=== PATIENT | female | born 1960 | race Caucasian/White ===

== ENCOUNTER 2016-06-03 16:30 | Inpatient (IN) | payer OTHER ==
--- NOTE | 2016-06-03 17:05 | PROVIDER DOCUMENTATION ---
HPI-General Adult - General Source: patient - History of Present Illness -Gen Adult Nature of Presenting Problems: pt is a 56 yof who came to the ED with a cc of edema. Pt reports her edema is getting worse over the last couple of days. pt has a hx of venous stasis. Location of Pain/Injury: reports: lower extremity Pain Radiation: reports: no radiation Quality of Pain: reports: none Severity: reports: mild Onset/Duration: reports: unsure Timing: reports: still present Context/Activities at Onset: reports: none Modifying Factors: improves with: nothing Associated Symptoms: reports: denies symptoms Similar Symptoms Previously?: No Recently seen or treated by another doctor?: No <Steffanie Colón - Last Filed: 06/03/16 17:47> <Ervin Vargas - Last Filed: 06/03/16 17:52> <Kadeem Ramirez - Last Filed: 06/03/16 20:44> - General Chief Complaint: Edema Stated Complaint: EDEMA/LEGS,DIABETIC,SORES ON LEG Allergies/Adverse Reactions: Patient Allergies Allergy/AdvReac Type Severity Reaction Status Date / Time NSAIDS (Non-Steroidal AdvReac Unknown BLEEDING Verified 06/03/16 18:13 Anti-Inflamma Home Medications: Home Medication List Medication Instructions Recorded Confirmed Last Taken Type Levothyroxine [Synthroid] 50 microgm PO DAILY 12/09/11 06/03/16 06/03/16 09:00 History Lisinopril 40 mg PO DAILY 12/09/11 06/03/16 06/03/16 09:00 History Metoprolol [Lopressor] 50 mg PO BID 12/09/11 06/03/16 06/03/16 09:00 History Albuterol Sulfate Inhaler 2 puff INH Q6H PRN PRN 07/20/12 06/03/16 11/15/14 History [Ventolin Hfa] Isosorbide Mononitrate E.r. [Imdur] 60 mg PO DAILY 07/20/12 06/03/16 06/03/16 09 :00 History PRAVAstatin [Pravachol] 40 mg PO QHS 07/20/12 06/03/16 06/02/16 History Spironolactone [Aldactone] 25 mg PO DAILY 07/20/12 06/03/16 06/03/16 09:00 History Aspirin 81 mg PO DAILY 08/28/12 06/03/16 06/03/16 09:00 History Fluticasone/Salmet 250/50 INH 1 puff INH RTBID 08/28/12 06/03/16 06/18/15 History [Advair 250/50 Diskus] Ranolazine E.r. [Ranexa] 1,000 mg PO BID 08/28/12 06/03/16 06/03/16 09:00 History Gabapentin [Neurontin] 600 mg PO HS 09/09/12 06/03/16 06/02/16 History Fluticasone 50 Mcg Nasal [place] 1 spray ARIE DAILY PRN PRN 06/18/15 06/03/1606/03 09:00 History [Flonase] Furosemide 20 mg PO BID 06/18/15 06/03/16 06/03/16 09:00 History Glipizide E.r. [Glucotrol Xl] 5 mg PO HS 06/18/15 06/03/16 06/02/16 History Warfarin [Coumadin] 4 mg PO DIRECTED 06/18/15 06/03/16 06/02/16 History Omeprazole [Prilosec] 40 mg PO DAILY 06/03/16 06/03/16 06/03/16 09:00 History Polyethylene Glycol 3350 [Miralax] 17 gm PO DAILY PRN PRN 06/03/16 06/03/16 2 Days Ago History Warfarin [Coumadin] 2 mg PO DIRECTED 06/03/16 06/03/16 05/28/16 History Past History - Adult - PAST MEDICAL HISTORY-ADULT Review of Records: reports: Old Records Reviewed, Nursing Assessment Review Major Childhood Illnesses: reports: denies history Cardiovascular: reports: CAD, CHF, HTN, hyperlipidemia Respiratory: reports: COPD Gastrointestinal: reports: GERD Obstetrical/Gynecological: reports: denies history Genitourinary: reports: denies history Musculoskeletal: reports: denies history Neurological: reports: denies history Endocrine/Immune: reports: Diabetes Other Conditions: reports: denies history - PRIOR SURGERIES/PROCEDURES Surgical/Procedure History: reports: orthopedic (extremity), other (ulcer surgery) - IMMUNIZATION STATUS Childhood Immunizations: See Nurse Assessment Flu Vaccine: See Nurse Assessment - FAMILY HISTORY Family History: reviewed, not pertinent <Steffanie Colón - Last Filed: 06/03/16 17:47> Physical Exam-General - PHYSICAL EXAM-ADULT Initial Vital Signs Reviewed: Yes - CONSTITUTIONAL General Appearance: appears well, alert, no apparent distress - EYES Eyes: PERRL/EOMI, pink conjunctivae, fundi clear, no AV nicking - NECK Neck: non-tender - RESPIRATORY Respiratory: chest non-tender, lungs clear - CARDIOVASCULAR Cardiovascular: normal peripheral pulses, regular rate, rhythm - GASTROINTESTINAL (ABDOMEN) Abdominal Exam: normal bowel sounds, non tender, soft - LYMPHATIC Lymphatic: no adenopathy - MUSCULOSKELETAL Back Exam: normal inspection Extremity: pedal edema - SKIN Integumentary: normal color - NEUROLOGIC Neurologic: grossly normal - PSYCHIATRIC Psych/Mental Status: normal mood/affect, normal thought content, normal thought process, oriented x 3 <KatarzynaSteffanie - Last Filed: 06/03/16 17:47> Progress - PLAN OF CARE/RESULTS Progress/Plan/Lab Results: Vital Signs - 24 hr 06/03/16 16:39 Temperature 98.5 F Pulse Rate 76 Respiratory 22 Rate Blood Pressure 143/80 O2 Sat by Pulse 99 Oximetry - CHANGE OF SHIFT REPORT (ED Provider) Report Given and Care Transferred to:: Dr. Escobedo Time of Transfer: 17:48 Items Pending: Labs, XRAY Results <Steffanie Colón - Last Filed: 06/03/16 17:47> - CHANGE OF SHIFT REPORT (ED Provider) Report Given and Care Transferred to:: Dr. Jeny Escobedo Time of Transfer: 18:00 Items Pending: Labs, XRAY Results Tentative Impression of Patient: venous stasis (chronic) CHF exacerbation <Ervin Vargas - Last Filed: 06/03/16 17:52> - PLAN OF CARE/RESULTS Progress/Plan/Lab Results: Vital Signs - 24 hr 06/03/16 06/03/16 06/03/16 16:39 17:55 18:27 Temperature 98.5 F 97.8 F Pulse Rate 76 74 68 Respiratory 22 22 16 Rate Blood Pressure 143/80 154/69 143/95 O2 Sat by Pulse 99 97 96 Oximetry Orders Category Date Time Status Cardiac Monitoring DIRECTED Care 06/03/16 17:07 Active Saline Loc NOW Care 06/03/16 17:07 Active CHEST-2 VIEWS [RAD] Stat Exams 06/03/16 17:07 Draft CBC WITH ELECTRONIC DIFF [HEME] Stat Lab 06/03/16 17:50 Completed CK PROFILE [SP CHEM] Stat Lab 06/03/16 17:50 Completed COMPREHENSIVE METABOLIC PANEL [CHEM] Stat Lab 06/03/16 17:50 Completed MAGNESIUM [CHEM] Stat Lab 06/03/16 17:50 Completed PRO B-NATRIURETIC PEPTIDE Stat Lab 06/03/16 17:50 Completed PROTIME WITH INR [COAG] Stat Lab 06/03/16 17:50 Completed PTT [COAG] Stat Lab 06/03/16 17:50 Completed TROPONIN T Stat Lab 06/03/16 17:50 Completed EKG [EKG] Stat Ther 06/03/16 17:07 Ordered Laboratory Tests 06/03/16 06/03/16 06/03/16 17:50 17:50 17:50 WBC 7.65 RBC 4.10 L Hgb 12.9 Hct 39.3 MCV 95.9 MCH 31.5 H MCHC 32.8 L RDW Std Deviation 12.9 Plt Count 244 MPV 10.9 H Immature Gran % (Auto) 1.0 H Neut % (Auto) 72.3 Lymph % (Auto) 15.9 L [place] % (Auto) 8.1 Eos % (Auto) 2.4 Baso % (Auto) 0.3 Immature Gran # (Auto) 0.08 H Neut # (Auto) 5.53 Lymph # (Auto) 1.22 [place] # (Auto) 0.62 H Eos # (Auto) 0.18 Baso # (Auto) 0.02 PT INR PTT (Actin FS) Sodium 137 Potassium 4.1 Chloride 98 Carbon Dioxide 22 L Anion Gap 17 BUN 23 H Creatinine 1.2 H Estimated GFR/1.73 m2 46 BUN/Creatinine Ratio 19 Glucose 233 H Calculated Osmolality 285 Calcium 8.3 L Magnesium 1.7 Total Bilirubin 0.70 AST 31 H ALT 34 Alkaline Phosphatase 74 Creatine Kinase 122 Troponin T [id number] Pept 164 Total Protein 6.5 Albumin 3.6 Globulin 2.9 Albumin/Globulin Ratio 1.2 06/03/16 06/03/16 17:50 17:50 WBC RBC Hgb Hct MCV MCH MCHC RDW Std Deviation Plt Count MPV Immature Gran % (Auto) Neut % (Auto) Lymph % (Auto) [place] % (Auto) Eos % (Auto) Baso % (Auto) Immature Gran # (Auto) Neut # (Auto) Lymph # (Auto) [place] # (Auto) Eos # (Auto) Baso # (Auto) PT 30.4 H INR 2.84 PTT (Actin FS) 32.5 Sodium Potassium Chloride Carbon Dioxide Anion Gap BUN Creatinine Estimated GFR/1.73 m2 BUN/Creatinine Ratio Glucose Calculated Osmolality Calcium Magnesium Total Bilirubin AST ALT Alkaline Phosphatase Creatine Kinase Troponin T < 0.010 Nzb-T-Uazrqkxormp Pept Total Protein Albumin Globulin Albumin/Globulin Ratio - EKG 1 Time of EKG reading by physician:: 17:46 EKG Read and Signed by:: Darin Escobedo EKG Interpretation (*Must complete 3 of following elements*): Normal Rate: 74 Rhythm: NSR - XRAY 1 XRAY: Bilateral XRAY Study: Chest Impression: See EMR Report (Minimal pulmonary edema vs fibrosis; Stable cardiomegaly) XRAY Interpretation: See report - CONSULTS/PCP/HOSPITALIST Notification #1 *Consult/PCP/Hospitalist*: Dr. Campbell (Hospitalist) Time Discussed: 19:50 Consult Disposition: Admit - CHANGE OF SHIFT REPORT (ED Provider) Report Given and Care Transferred to:: Dr. Escobedo Time of Transfer: 18:00 <Kadeem Ramirez - Last Filed: 06/03/16 20:44> Departure <Steffanie Colón - Last Filed: 06/03/16 17:47> <Ervin Vargas - Last Filed: 06/03/16 17:52> - Departure Time of Disposition Order: 19:57 Certified Medical Emergency: Emergent <Kadeem Ramirez - Last Filed: 06/03/16 20:44> - Departure DIAGNOSIS: CHF (congestive heart failure) Qualifiers: Congestive heart failure type: unspecified congestive heart failure type Congestive heart failure chronicity: unspecified congestive heart failure chronicity Qualified Code(s): I50.9 - Heart failure, unspecified Disposition: ADMITTED INPATIENT 09 Condition: Stable Referrals: Dave Moreau MD [Primary Care Provider] - Attestation - Scribe Verification/Attestation Scribe:: Steffanie Colón Acting as Scribe for:: Ervin Vargas Scribe documention review:: This chart was documented by a scribe and accurately reflects the service the provider performed and the decisions made by the provider. - Scribe Verification/Attestation #2 Shift Change Time: 17:50 Scribe Name: Kadeem Ramirez Acting as Scribe for:: Darin Escobedo <Steffanie Colón - Last Filed: 06/03/16 17:47> - Scribe Verification/Attestation Scribe:: Kadeem Ramirez Acting as Scribe for:: Darin Escobedo Scribe documention review:: This chart was documented by a scribe and accurately reflects the service the provider performed and the decisions made by the provider. - Scribe Verification/Attestation #2 Shift Change Time: 18:00 Scribe Name: Kadeem Ramirez Acting as Scribe for:: Darin Escobedo <Kadeem Ramirez - Last Filed: 06/03/16 20:44> Physician Attestation
--- NOTE | 2016-06-03 18:15 | Diag Imaging Result Document ---
PROCEDURE NAME: CHEST-2 VIEWS - 06/03/2016 FRONTAL AND LATERAL CHEST, 2 VIEWS: COMPARISON: Compared to 06/18/2015. The lungs are well expanded. Mild cardiomegaly remains. Mild increased interstitial markings have an appearance fairly similar to that of the prior exam. No consolidation. No pleural effusions. IMPRESSION: 1. Minimal pulmonary edema versus fibrosis. 2. Stable cardiomegaly.
[2016-06-03 18:27] LABS: MANUAL DIFF NEEDED? NO
[2016-06-03 18:37] LABS: BASO% 0.3 % (0.0-0.8); EOS# 0.18 X1000 (0.0-0.7); EOS% 2.4 % (0.0-10.0); HEMATOCRIT 39.3 % (37.0-47.0); HEMOGLOBIN 12.9 g/dL (12.0-16.0); IMM GRAN# 0.08 X1000 (0.0-0.04); LYMPH# 1.22 X1000 (1.2-3.4); LYMPH% 15.9 % (20.5-51.1); MCH 31.5 PG (27-31); MCHC 32.8 g/dL (33-37); MCV 95.9 FL (81-99); MONO# 0.62 X1000 (0.11-0.59); MONO% 8.1 % (1.7-9.3); MPV 10.9 FL (7.4-10.4); NEUT% 72.3 % (42.2-75.2); PLT 244 X1000 (130-400)
[2016-06-03 18:49] LABS: PTT 32.5 Seconds (22.0-36.0)
[2016-06-03 18:53] LABS: ALBUMIN 3.6 g/dL (3.5-5.0); CALCIUM 8.3 mg/dL (8.8-10.2); MAGNESIUM 1.7 mg/dL (1.5-2.7); POTASSIUM 4.1 mmol/L (3.5-5.1); TOTAL BILIRUBIN 0.7 mg/dL (0.20-1.00); TOTAL PROTEIN 6.5 g/dL (6.3-8.3)
[2016-06-03 18:59] LABS: INR 2.84; PROTIME 30.4 Seconds (9.2-11.7)
[2016-06-03] MEDS ORDERED: LASIX IV ONE (21:07)
[2016-06-03] MEDS ORDERED: HYDROXYZINE IM ONE (22:03)
--- NOTE | 2016-06-03 23:00 | HISTORY AND PHYSICAL ---
REASON FOR ADMISSION: Shortness of breath for the last 10 days. One week history of leg swelling. Ms. Jamia Rojo is 56-year-old lady with past medical history of diastolic heart failure, type 2 diabetes, prior PE, COPD, asthma, sleep apnea noncompliant with CPAP, aortic aneurysm, reflux disease, coronary artery disease, hypertension, diabetic neuropathy, kidney stones, hypothyroidism and chronic venous insufficiency. She comes in today complaining of a 10-day history of progressive acute on chronic worsening shortness of breath. Has a longstanding history of chronic dyspnea on exertion and is able to walk about 25 yards before she becomes short of breath. However over the last 1 week she says that her breath sounds diminished to the point that she can barely go 5 feet before she becomes profoundly short of breath. She admits to having occasional cough which is dry but no fever or chills. She reports simultaneous lower extremity leg swelling which has not been very significant but more than usual. Says along with this last 4 days she is having pruritus of her lower extremities and some slight redness. Said the swelling does recede when she wakes up in the morning but is worse at the end of the day. Denies any calf pain or pain in the popliteal area or on the medial aspect of her thighs. No lower extremity discoloration. She has longstanding history of chronic orthopnea and sleeps in recliner although she says it has slightly gotten worse. No PND, no chest pain. She admits of having slight abdominal swelling and distention over the last few days. REVIEW OF SYSTEMS: Only notable for urge incontinence. Otherwise 12 system review is negative. Positive findings per HPI. ALLERGIES: NSAIDs. HOME MEDICATIONS: She takes lisinopril 40 mg daily, Lopressor 50 mg b.i.d., Synthroid 50 mcg daily, Ventolin inhaler 2 puffs q.6, Aldactone 25 mg daily, Imdur 60 mg daily, Pravachol 40 mg at bedtime, Advair 1 puff b.i.d., aspirin 81 mg daily, Ranexa 1000 mg b.i.d., Neurontin 600 mg at bedtime, Flonase 1 puff daily, Coumadin 4 mg as directed and 2 mg as directed, furosemide 20 mg b.i.d., glipizide 5 mg at bedtime, MiraLAX 17 mg daily, omeprazole 40 mg daily. SURGICAL HISTORY: She has had bilateral lower extremity surgery for bone spurs, right breast hematoma removed and GI surgery post GI bleed. SOCIAL HISTORY: Lives alone. She is disabled, does not smoke, drink or illicit drugs. FAMILY HISTORY: Notable for extensive heart disease in first-degree relatives, type 2 diabetes, thyroid problems. LAB WORK: X-ray shows mildly increased interstitial edema versus fibrosis. EKG not available for review when I request. White count 7000, hemoglobin and hematocrit 12 and 39, platelets 244,000. BUN 23, creatinine 1.2, glucose 233. Troponin is negative. ProBNP is 164, INR is 2.8. PHYSICAL EXAMINATION: GENERAL: Morbidly obese middle-aged woman who is in mild respiratory distress. She is A, O x3, normal mood and affect. VITAL SIGNS: Heart rate is 68, respiration 17, blood pressure is 141/57, 96% on room air. HEENT: Head is normocephalic, atraumatic. JEVON, EOMI, she is anicteric and not pale. No oropharyngeal exudates or erythema . No cyanosis. NECK: Short and thick. No JVD visualized, no bruit, no thyromegaly. CHEST: Decreased air entry in both lung da sil[place] with few scattered wheezes and questionable basilar crepitations. CARDIOVASCULAR: First, second heart sounds heard. No gallops. Possible soft 2/6 diastolic murmur. Rhythm is regular. ABDOMEN: Protuberant, soft, with no focal areas of tenderness. No masses, no organomegaly. Bowel sounds are hypoactive. RECTAL: Deferred at this time. EXTREMITIES: Patient has trace to 1+ pitting edema lower extremities. She has notable oozing of clear fluid from her legs. There is slight hyperkalemia bilaterally on both lower extremities on the anterior medial aspect of her leg. They are slightly warm to touch but they are not indurated. Pulses distally are diminished in her lower extremities but patient has good volume + 1 and her distal upper extremities. No clubbing, peripheral cyanosis. NEUROLOGICAL: No focal deficits. SKIN: See above. Otherwise unremarkable. MUSCULOSKELETAL: Exam is grossly normal. ASSESSMENT: At this time is. 1. Early onset acute diastolic heart failure. 2. Type 2 diabetes uncontrolled. 3. Chronic venous insufficiency. 4. Chronic obstructive pulmonary disease. 5. Sleep apnea. 6. Coronary artery disease. 7. Hypertensive heart disease. 8. Hypothyroidism. PLAN: At this time will admit patient for diuresis for the next 1-2 days. Follow up with labs and chest film to document objective improvement. Get echocardiogram to document ejection fraction. Last 1 was 70%. At this point in time will also start patient on nebulizer treatments for symptomatic relief. She is pretty much at optimal therapy for her heart disease although may benefit from increasing her Imdur and/or beta-chen if her heart rate tolerates. She may also benefit from increasing her diuretics at discharge. She will be continued on her oral agents i.e. Glucotrol for now and she will be on sliding scale in the interim and depending on her A1c maybe metformin added if she can tolerate. Continue with her anticoagulation which is therapeutic.
[2016-06-03] MEDS ORDERED: TYLENOL PO PRN (23:35)
[2016-06-03] MEDS ORDERED: ZOFRAN IV PRN (23:35)
[2016-06-03] MEDS ORDERED: COUMADIN PO SCH (23:35)
[2016-06-03] MEDS: DUONEB (A & A) INH SCH (23:52)
[2016-06-04] MEDS: GLUCOTROL XL PO SCH ×2 (01:00→20:49)
[2016-06-04] MEDS: LOPRESSOR PO SCH ×3 (01:00→20:48)
[2016-06-04] MEDS: PRAVACHOL PO SCH ×2 (01:00→20:48)
[2016-06-04] MEDS: NEURONTIN PO SCH ×2 (01:00→20:48)
[2016-06-04] MEDS: LASIX IV SCH ×3 (01:00→23:04)
[2016-06-04] MEDS: RANEXA PO SCH ×3 (01:01→20:47)
[2016-06-04] MEDS: DUONEB (A & A) INH SCH ×6 (03:50→22:57)
--- NOTE | 2016-06-04 05:47 | EKG Report ---
Test Performed on : 06/03/2016 5:46:52 PM Test Reason : Chest Pain Blood Pressure : / mmHG Vent. Rate : 074 BPM Atrial Rate : 074 BPM P-R Int : 168 ms QRS Dur : 088 ms QT Int : 426 ms P-R-T Axes : 042 -19 039 degrees QTc Int : 472 ms Normal sinus rhythm. Normal ECG When compared with ECG of 19-JUN-2015 04:03, Questionable change in QRS duration Unconfirmed Result
[2016-06-04] MEDS: SYNTHROID PO SCH (06:05)
[2016-06-04] MEDS: HUMALOG SUBQ SCH ×4 (06:05→20:48)
[2016-06-04] MEDS: PRILOSEC PO SCH (06:05)
[2016-06-04 06:27] LABS: MANUAL DIFF NEEDED? NO
[2016-06-04 06:48] LABS: CALCIUM 8.7 mg/dL (8.8-10.2); POTASSIUM 4.2 mmol/L (3.5-5.1)
[2016-06-04 06:57] LABS: BASO% 0.2 % (0.0-0.8); EOS# 0.15 X1000 (0.0-0.7); EOS% 1.8 % (0.0-10.0); HEMATOCRIT 39.2 % (37.0-47.0); HEMOGLOBIN 12.7 g/dL (12.0-16.0); IMM GRAN# 0.08 X1000 (0.0-0.04); LYMPH# 1.37 X1000 (1.2-3.4); LYMPH% 16.8 % (20.5-51.1); MCH 31.2 PG (27-31); MCHC 32.4 g/dL (33-37); MCV 96.3 FL (81-99); MONO# 0.87 X1000 (0.11-0.59); MONO% 10.7 % (1.7-9.3); MPV 10.9 FL (7.4-10.4); NEUT% 69.5 % (42.2-75.2); PLT 246 X1000 (130-400); RBC 4.07 XMIL (4.2-5.4)
[2016-06-04] MEDS: FLONASE NAS SCH (09:25)
[2016-06-04] MEDS: ASPIRIN PO SCH (09:26)
[2016-06-04] MEDS: MIRALAX PO SCH (09:26)
[2016-06-04] MEDS: ALDACTONE PO SCH (09:26)
[2016-06-04] MEDS: PRINIVIL PO SCH (09:26)
[2016-06-04] MEDS: IMDUR PO SCH (09:26)
--- NOTE | 2016-06-04 11:43 | Diag Imaging Result Document ---
PROCEDURE NAME: CHEST-2 VIEWS - 06/04/2016 TWO VIEWS OF THE CHEST: FINDINGS: There is cardiomegaly. There are prominent fat pads. There has been no significant change since 06/03/2016. IMPRESSION: Cardiomegaly.
[2016-06-04] MEDS ORDERED: BENADRYL PO ONE ×2 (12:45→21:05)
--- NOTE | 2016-06-04 17:15 | ECHO REPORT ---
ORDER DATE: 06/04/2016 INDICATION: A 56-year-old female with CHF, shortness of breath, and edema. M-MODE MEASUREMENTS: Right ventricle: 3.7 cm. Left ventricle end diastole: 6.0 cm. Left ventricle end systole: 4.1 cm. Posterior wall: 1.2 cm. Interventricular septum: 1.3 cm. Left atrium: 4.4 cm. Aortic root: 2.3 cm. SUMMARY OF 2-DIMENSIONAL IMAGIN. Left ventricular function appears to be well preserved. The ejection fraction is estimated in the range of 55%-60%. The chamber is not dilated. There is a mild degree of concentric LVH. 2. The right ventricle appears to be moderately enlarged. 3. The tricuspid valve shows a mild degree of regurgitation. 4. The inferior vena cava was not visualized. 5. The pulmonary pressure is estimated somewhere in the range of 35 mmHg to 40 mmHg. 6. The pulmonic valve is normal. Color flow mapping shows trace regurgitation. 7. The aortic valve looks normal. Color flow mapping is unremarkable. 8. The mitral valve shows trivial degree of regurgitation. 9. Pulse wave Doppler of mitral inflow is normal. 10.Tissue Doppler of septal and lateral mitral annulus averages 6 cm. 11.There is no diastolic dysfunction. 12.There is no pericardial effusion and no sign of thrombus. SUMMARY: In summary, this study shows: 1. Normal left ventricular systolic function with ejection fraction of 55%-60%. 2. No diastolic dysfunction. 3. The pulmonary pressure is borderline elevated. 4. Mild degree of concentric left ventricular hypertrophy. 5. Unremarkable aortic valve. Clinical correlation is recommended. [facility]
--- NOTE | 2016-06-04 17:33 | PROGRESS NOTE ---
DATE: 06/04/2016 SUBJECTIVE: This patient states that she is feeling better. She is still complaining of mild shortness of breath and lower extremity edema but compared with yesterday she feels better. She also is complaining about itchiness and I will add Benadryl to her medications. The itchiness is mostly involving the lower extremities. OBJECTIVE: Vital Signs: Temperature 97.5 degrees, pulse 90, respiratory rate 20, blood pressure 133/85, oxygen saturation 93 on room air. HEENT: Head normocephalic. No trauma. PERRLA. Neck: Supple. No JVD. No masses. Central trachea. Chest: Decreased breath sounds globally. Bilateral rales at the bases. Cardiovascular: RRR. Diastolic murmur. Abdomen : Protuberant, obese, soft, nontender, no hepatosplenomegaly. Extremities: 2+ pitting edema of the lower extremities, chronic. Circulatory changes on her legs. Neurological Examination: This patient is alert and oriented x3. No focal neurological deficits. LABORATORY: WBC 8.1, hemoglobin 12.7, hematocrit 39.2, sodium 140, potassium 4.2, chloride 100, bicarbonate 25, BUN 25, creatinine 1.5, glucose 149, hemoglobin A1c 8, calcium 8.7. ASSESSMENT AND PLAN: 1. Fluid overload. I will continue diuresing this patient, echocardiogram report did not showed heart failure, probably this is 2ry to kidney disfunction. This patient is feeling better. We will continue with the same management for now. 2. Type 2 diabetes uncontrolled, the hemoglobin A1c is 8, the blood sugar is better controlled. I will continue with the same management for now. 3. Chronic venous insufficiency, aware. 4. History of chronic obstructive pulmonary disease not in exacerbation at this point. 5. Sleep apnea. Aware. I am not sure if this patient is on a CPAP machine at home. 6. History of coronary artery disease. This patient is not complaining of chest pain at this moment. We will continue to monitor. 7. Hypertensive heart disease. Aware. Continue to monitor. Pending echocardiogram. 8. Hypothyroidism. We will order a TSH. We will monitor. 9. CKD, probably related with chronic uncontrolled DM, upon discharge she will [facility]
[2016-06-04] MEDS: ADVAIR 250/50 DISKUS INH SCH ×2 (20:17→20:18)
[2016-06-04] MEDS ORDERED: COUMADIN PO SCH (21:00)
[2016-06-05] MEDS: DUONEB (A & A) INH SCH ×3 (03:24→11:31)
[2016-06-05] MEDS: PRILOSEC PO SCH ×2 (05:31→06:04)
[2016-06-05] MEDS: SYNTHROID PO SCH ×2 (05:32→06:05)
[2016-06-05] MEDS: HUMALOG SUBQ SCH ×2 (06:04→10:55)
[2016-06-05 06:11] LABS: MANUAL DIFF NEEDED? NO
[2016-06-05 06:17] LABS: BASO% 0.1 % (0.0-0.8); EOS# 0.16 X1000 (0.0-0.7); EOS% 2.3 % (0.0-10.0); HEMOGLOBIN 12.5 g/dL (12.0-16.0); IMM GRAN# 0.07 X1000 (0.0-0.04); LYMPH# 1.44 X1000 (1.2-3.4); LYMPH% 20.3 % (20.5-51.1); MCH 31.8 PG (27-31); MCHC 32.9 g/dL (33-37); MCV 96.7 FL (81-99); MONO# 0.85 X1000 (0.11-0.59); MPV 10.8 FL (7.4-10.4); NEUT% 64.3 % (42.2-75.2); PLT 257 X1000 (130-400); RBC 3.93 XMIL (4.2-5.4)
[2016-06-05 06:37] LABS: ALBUMIN 3.8 g/dL (3.5-5.0); CALCIUM 8.7 mg/dL (8.8-10.2); POTASSIUM 4.2 mmol/L (3.5-5.1); TOTAL BILIRUBIN 0.68 mg/dL (0.20-1.00); TOTAL PROTEIN 6.7 g/dL (6.3-8.3)
[2016-06-05] MEDS: ADVAIR 250/50 DISKUS INH SCH (07:43)
[2016-06-05] MEDS: MIRALAX PO SCH (08:13)
[2016-06-05] MEDS: FLONASE NAS SCH (08:13)
[2016-06-05] MEDS: RANEXA PO SCH (08:13)
[2016-06-05] MEDS: ALDACTONE PO SCH (08:14)
[2016-06-05] MEDS: ASPIRIN PO SCH (08:14)
[2016-06-05] MEDS: PRINIVIL PO SCH (08:14)
[2016-06-05] MEDS: IMDUR PO SCH (08:14)
[2016-06-05] MEDS: LOPRESSOR PO SCH (08:14)
[2016-06-05] MEDS: LASIX IV SCH (10:49)
[2016-06-05 11:13] VITALS: BP 141/65
--- NOTE | 2016-06-06 04:27 | DISCHARGE SUMMARY ---
ADMISSION DATE: 06/03/2016 DISCHARGE DATE: 06/05/2016 CONSULTATIONS: None. PERTINENT PROCEDURES: Echocardiogram showed an EF of 55-60%, no diastolic dysfunction. DISCHARGE DIAGNOSES: 1. Fluid volume overload. Echocardiogram did not show any findings of heart failure secondary to kidney dysfunction. Patient diuresed well. 2. Type 2 diabetes mellitus, uncontrolled. Hemoglobin A1c was 8. 3. Chronic venous insufficiency. Aware. 4. Chronic obstructive pulmonary disease without exacerbation. 5. Sleep apnea. Aware. Patient has a CPAP at home. 6. Coronary artery disease with no complaints of chest pain. 7. Hypertensive heart disease. Aware. 8. Hypothyroidism. Continue Synthroid. 9. Chronic kidney disease undiagnosed secondary to chronic uncontrolled diabetes mellitus. She will follow up with nephrology upon discharge. HOSPITAL COURSE: Briefly, Ms. Rojo is a 56-year-old, female who has a past medical history of uncontrolled diabetes mellitus type 2, COPD, sleep apnea noncompliant with CPAP, aortic aneurysm, GERD, coronary artery disease, hypertension, diabetic neuropathy, kidney stones, hypothyroidism, and chronic venous insufficiency. The patient came to the ED complaining of a 10- day history of progressive acute on chronic worsening shortness of breath. Has a longstanding history of chronic dyspnea on exertion. Is able to walk about 25 yards before she becomes short of breath. However, over the last week, she said that her breath sounds diminished to the point that she could barely go 5 feet before she became profoundly short of breath. She was having an occasional cough which was dry. No fever. No chills. She reported simultaneously lower extremity swelling that was not very significant but more than usual, as well as pruritus over her lower extremities with some slight redness. The swelling does recede when she wakes up in the morning but it does get worse as the day goes on. Patient does have a longstanding history of chronic orthopnea and sleeps in a recliner. She was also complaining of some slight abdominal swelling and distention over the last few days. The patient was admitted for early onset of acute diastolic heart failure, uncontrolled diabetes. The patient was diuresed. An echocardiogram was ordered. She was also started on DuoNebs. Her echocardiogram showed a normal left ventricular systolic function with an EF of 55-60% and no diastolic dysfunction. A followup chest x-ray just showed cardiomegaly. The patient did diurese well. [place] this was secondary to her kidney dysfunction. The patient continues to feel better. Dr. Dickson would like her to follow up outpatient with a nephrology consult upon discharge. Vital signs at the time of discharge, temperature is 99 degrees, heart rate is 70, respirations 16, blood pressure 141/65, O2 is 97% on room air. DISCHARGE MEDICATIONS: 1. Lisinopril 40 mg p.o. daily. 2. Lopressor 50 mg p.o. b.i.d. 3. Synthroid 50 mcg p.o. daily. 4. Ventolin inhaler 2 puffs inhaled q.6 hours. 5. Aldactone 25 mg p.o. daily. 6. Isosorbide mononitrate ER 60 mg p.o. daily. 7. Pravachol 40 mg p.o. at bedtime. 8. Advair Diskus 1 puff inhaled RT b.i.d. 9. Aspirin 81 mg p.o. daily. 10. Ranexa 1000 mg p.o. b.i.d. 11. Neurontin 600 mg p.o. at bedtime. 12. Flonase 1 spray nasally daily. 13. Coumadin 4 mg p.o. as directed. 14. Lasix 20 mg p.o. b.i.d. 15. Glucotrol XL 5 mg p.o. at bedtime. 16. MiraLAX 17 g p.o. daily. 17. Coumadin 2 mg p.o. as directed. 18. Prilosec 40 mg p.o. daily. FOLLOWUP: The patient is being discharged home with home health services. She will need to follow up with Dr. Elvin Ackerman as well as her primary care physician, Dr. Dave Moreau, in 7- 10 days. Patient can return to the ED for any worsening of symptoms. She is to monitor her daily weights, and Is and Os. Discharge time greater than 30 minutes. Dictated by AUDI Nunez for Brett Banks MD
== END 2016-06-05 15:53 | disposition home health service (06) | DRG 641 ==
LOC: ED 16:30 → 4N 23:14
PROVIDERS: ATTEND Internal Medicine
DX: E87.70 Fluid overload, unspecified (principal); E11.22 Type 2 diabetes mellitus with diabetic chronic kidney disease; I13.10 Hypertensive heart and chronic kidney disease without heart failure, with stage 1 through stage 4 chronic kidney disease, or unspecified chronic kidney disease; Z68.43 Body mass index [BMI] 50.0-59.9, adult; E11.40 Type 2 diabetes mellitus with diabetic neuropathy, unspecified; E11.65 Type 2 diabetes mellitus with hyperglycemia; I25.10 Atherosclerotic heart disease of native coronary artery without angina pectoris; J44.9 Chronic obstructive pulmonary disease, unspecified; J45.909 Unspecified asthma, uncomplicated; N18.9 Chronic kidney disease, unspecified; E03.9 Hypothyroidism, unspecified; K21.9 Gastro-esophageal reflux disease without esophagitis; G47.30 Sleep apnea, unspecified; I87.2 Venous insufficiency (chronic) (peripheral); E66.01 Morbid (severe) obesity due to excess calories; Z91.19 Patient's noncompliance with other medical treatment and regimen; Z79.899 Other long term (current) drug therapy; Z79.82 Long term (current) use of aspirin; Z79.01 Long term (current) use of anticoagulants; Z79.84 Long term (current) use of oral hypoglycemic drugs; Z86.711 Personal history of pulmonary embolism; Z83.3 Family history of diabetes mellitus
CPT/HCPCS: 71020; 80048; 80053; 82550; 82948; 83036; 83735; 83880; 84443; 84484; 85025; 85610; 85730; 93005; 93306; 94640; 94760; 94761; 96372; 96374; J1815; J1940

== ENCOUNTER 2016-06-11 14:38 | Emergency (ER) | payer OTHER ==
--- NOTE | 2016-06-11 17:02 | PROVIDER DOCUMENTATION ---
HPI-General Adult - General Chief Complaint: Extremity Pain Stated Complaint: GENERAL ADULT Time Seen by Provider: 06/11/16 16:15 Allergies/Adverse Reactions: Patient Allergies Allergy/AdvReac Type Severity Reaction Status Date / Time NSAIDS (Non-Steroidal AdvReac Severe GASTRIC Verified 06/11/16 16:58 Anti-Inflamma BLEEDING Home Medications: Home Medication List Medication Instructions Recorded Confirmed Last Taken Type Levothyroxine [Synthroid] 50 microgm PO DAILY 12/09/11 06/03/16 06/03/16 09:00 History Lisinopril 40 mg PO DAILY 12/09/11 06/03/16 06/03/16 09:00 History Metoprolol [Lopressor] 50 mg PO BID 12/09/11 06/03/16 06/03/16 09:00 History Albuterol Sulfate Inhaler 2 puff INH Q6H PRN PRN 07/20/12 06/03/16 11/15/14 History [Ventolin Hfa] Isosorbide Mononitrate E.r. [Imdur] 60 mg PO DAILY 07/20/12 06/03/16 06/03/16 09 :00 History PRAVAstatin [Pravachol] 40 mg PO QHS 07/20/12 06/03/16 06/02/16 History Spironolactone [Aldactone] 25 mg PO DAILY 07/20/12 06/03/16 06/03/16 09:00 History Aspirin 81 mg PO DAILY 08/28/12 06/03/16 06/03/16 09:00 History Fluticasone/Salmet 250/50 INH 1 puff INH RTBID 08/28/12 06/03/16 06/18/15 History [Advair 250/50 Diskus] Ranolazine E.r. [Ranexa] 1,000 mg PO BID 08/28/12 06/03/16 06/03/16 09:00 History Gabapentin [Neurontin] 600 mg PO HS 09/09/12 06/03/16 06/02/16 History Fluticasone 50 Mcg Nasal [place] 1 spray ARIE DAILY PRN PRN 06/18/15 06/03/1606/03 09:00 History [Flonase] Furosemide 20 mg PO BID 06/18/15 06/03/16 06/03/16 09:00 History Glipizide E.r. [Glucotrol Xl] 5 mg PO HS 06/18/15 06/03/16 06/02/16 History Warfarin [Coumadin] 4 mg PO DIRECTED 06/18/15 06/03/16 06/02/16 History Omeprazole [Prilosec] 40 mg PO DAILY 06/03/16 06/03/16 06/03/16 09:00 History Polyethylene Glycol 3350 [Miralax] 17 gm PO DAILY PRN PRN 06/03/16 06/03/16 2 Days Ago History Mupirocin Ointment [Bactroban 1 applicatn TOP TID #1 tube 06/11/16 Unknown Rx Ointment] - History of Present Illness -Gen Adult Nature of Presenting Problems: Pt comes in r/t discoloration to the posterior portion of her thighs. She is a diabetic and has chronic color change to her bilat lower ext from venous stasis. She states that she is mostly chair bound because of her weight and bad knees. Review of Systems - Adult - REVIEW OF SYSTEMS - ADULT Constitutional: reports: no symptoms reported. denies: chills, fever, fatique, night sweats, weight gain, weight loss Eyes: reports: no symptoms reported. denies: discharge, dry eyes, decreased vision, double vision, eye pain, redness Ears, Nose, Mouth & Throat: reports: no symptoms reported. denies: ear discharge, ear pain, tinnitus, epistaxis, nose pain, mouth swelling, hoarseness , throat pain, throat swelling Cardiovascular: reports: no symptoms reported. denies: chest pain, edema, heart murmur, orthopnea, palpitations, poor circulation, PND Respiratory: reports: no symptoms reported. denies: chronic cough, cough, dyspnea on exertion, hemoptysis, pleurisy, shortness of breath, wheezing Gastrointestinal: reports: no symptoms reported. denies: abdominal pain, hematemesis, constipation, diarrhea, frequent heartburn, nausea, poor appetite, rectal bleeding, vomiting Genitourinary: reports: no symptoms reported. denies: dysuria, flank pain, hematuria, hesitency, incontinence, urinary retention, urgency Musculoskeletal: reports: no symptoms reported. denies: bone pain, back pain, frequent leg cramps, joint pain, muscle aches, muscle weakness, neck pain Integumentary: reports: see HPI, skin sores/ulcer, skin thickening. denies: hives, hair loss, itching, nail changes, rash Neurological: reports: no symptoms reported. denies: ataxia, dizziness/vertigo , headache/migraines, loss of balance, paresthesia, seizure, syncope, tremors Psychiatric: reports: no symptoms reported. denies: anxiety, anti-depressant use, alcohol/drug dependence, depression, insomnia, panic attacks, suicidal thoughts Endocrine: reports: no symptoms reported. denies: change in skin pigment, excessive sweating, goiter, heat intolerance, increased thirst, polyuria Hematologic/Lymphatic: reports: no symptoms reported. denies: blood clots, easy bruising, low blood count, lymphedema, swollen lymph nodes, transfusions Allergic/Immunologic: reports: no symptoms reported. denies: allergic reactions , allergic rhinitis, asthma, eczema, frequent infections, hay fever, positive PPD, urticaria All Other Systems: Reviewed and Negative Past History - Adult - PAST MEDICAL HISTORY-ADULT Review of Records: reports: Old Records Reviewed, Nursing Assessment Review, Medications Reviewed, Social history reviewed & non-contributory. Major Childhood Illnesses: reports: denies history Cardiovascular: reports: CAD, CHF, HTN, hyperlipidemia Respiratory: reports: COPD Gastrointestinal: reports: GERD Obstetrical/Gynecological: reports: denies history Genitourinary: reports: denies history Musculoskeletal: reports: denies history Neurological: reports: denies history Endocrine/Immune: reports: Diabetes Other Conditions: reports: denies history - PRIOR SURGERIES/PROCEDURES Surgical/Procedure History: reports: orthopedic (extremity), other (ulcer surgery) - PRIOR HOSPITALIZATIONS Prior Hospitalizations: reports: for similar symptoms - IMMUNIZATION STATUS Childhood Immunizations: See Nurse Assessment Flu Vaccine: See Nurse Assessment - FAMILY HISTORY Family History: reviewed, not pertinent - SOCIAL HISTORY Smoking: denies Substance Use: none/never Alcohol Use Frequency: never Living Situation: alone Physical Exam-General - PHYSICAL EXAM-ADULT Initial Vital Signs Reviewed: Yes - CONSTITUTIONAL General Appearance: appears well, alert, no apparent distress - EYES Eyes: PERRL/EOMI, pink conjunctivae - HEAD, EARS, NOSE, MOUTH & THROAT HENMT: normocephalic/atraumatic, moist mucous membranes, normal ENT inspection - NECK Neck: non-tender, full range of motion - RESPIRATORY Respiratory: chest non-tender, lungs clear, normal breath sounds, no pleuratic chest pain, no respiratory distress, no accessory muscle use - CARDIOVASCULAR Cardiovascular: normal peripheral pulses, regular rate, rhythm, other. negative : no edema (edema) - GASTROINTESTINAL (ABDOMEN) Abdominal Exam: normal bowel sounds, non tender, soft, no organomegaly, no pulsatile mass - MUSCULOSKELETAL Extremity: no calf tenderness, normal capillary refill, erythema, pedal edema, swelling. negative: normal range of motion, non-tender, normal gait, normal inspection, no pedal edema, slow capillary refill, tenderness - SKIN Integumentary: normal turgor, warm/dry, erythema (bilat lower ext and posterior thighs) - NEUROLOGIC Neurologic: director [place] II-XII nml as tested, grossly normal - PSYCHIATRIC Psych/Mental Status: normal thought content, normal thought process, oriented x 3, anxious Progress - PLAN OF CARE/RESULTS Progress/Plan/Lab Results: Vital Signs - 24 hr 06/11/16 15:09 Temperature 98.6 F Pulse Rate 72 Respiratory 20 Rate Blood Pressure 141/112 O2 Sat by Pulse 100 Oximetry Departure - Departure Time of Disposition Order: 17:05 DIAGNOSIS: Venous stasis dermatitis of both lower extremities Chapped skin Qualifiers: Encounter type: initial encounter Qualified Code(s): T69.8XXA - Other specified effects of reduced temperature, initial encounter Disposition: HOME 01 Certified Medical Emergency: Emergent Condition: Good Additional Instructions: follow up with PCP Prescriptions: Mupirocin Ointment [Bactroban Ointment] 1 applicatn TOP TID #1 tube Attestation - Physician/ HARLAN Attestation Patient care was provided by Advanced Practice Provider:: Yes Advanced Practice Provider:: Mynor Church Advanced Practice Provider documentation review:: The Mid-level provider documentation, treatment plan and medical decision making was reviewed by the physician who agrees with all treatment and medical decision making by the P.
[2016-06-11 17:27] VITALS: BP 130/77
== END 2016-06-11 17:26 | disposition home or self-care (01) ==
LOC: ED 14:38
DX: I87.2 Venous insufficiency (chronic) (peripheral) (principal); T69.8XXA Other specified effects of reduced temperature, initial encounter; R23.4 Changes in skin texture; L98.9 Disorder of the skin and subcutaneous tissue, unspecified; L53.9 Erythematous condition, unspecified; I25.10 Atherosclerotic heart disease of native coronary artery without angina pectoris; I50.9 Heart failure, unspecified; I10 Essential (primary) hypertension; Z79.899 Other long term (current) drug therapy; E78.5 Hyperlipidemia, unspecified; J44.9 Chronic obstructive pulmonary disease, unspecified; E11.9 Type 2 diabetes mellitus without complications; K21.9 Gastro-esophageal reflux disease without esophagitis; Z79.01 Long term (current) use of anticoagulants; Z79.82 Long term (current) use of aspirin